=== PATIENT | male | born 1960 | race Caucasian/White ===

== ENCOUNTER 2017-10-22 19:00 | Emergency (ER) | payer SELFPAY ==
[2017-10-22 19:17] VITALS: BP 173/73; PULSE 73; RESP 20; TEMP 97.1; O2SAT 99
[2017-10-22] MEDS ORDERED: Lidocaine 5% Patch TD STA (19:42)
[2017-10-22] MEDS ORDERED: Lidocaine 5% Patch TD ONE (19:58)
--- NOTE | 2017-10-22 20:00 | C.PDOC ---
History Of Present Illness 56 y/o male presents to ED with c/o mid and low back pain for 3 months. Patient states he has taken over the counter pain medication with no improvement, states today he woke up "stiff" secondary to pain prompting visit to ED. Patient denies heavy lifting, fever, chills, abdominal pain, dysuria, bowel/ bladder incontinence or any other complaints at this time. Time Seen by Provider: 10/22/17 19:18 Chief Complaint (Nursing): Back Pain History Per: Patient History/Exam Limitations: no limitations Onset/Duration Of Symptoms: Days Current Symptoms Are (Timing): Still Present Quality Of Discomfort: "Pain" Past Medical History Reviewed: Historical Data, Nursing Documentation, Vital Signs Vital Signs: Last Vital Signs Temp 97.1 F L 10/22/17 19:14 Pulse 73 10/22/17 19:14 Resp 20 10/22/17 19:14 BP 173/73 H 10/22/17 19:14 Pulse Ox 99 10/22/17 20:36 - Medical History PMH: No Chronic Diseases Surgical History: No Surg Hx Family History: States: No Known Family Hx - Social History Hx Alcohol Use: No Hx Substance Use: No Review Of Systems Constitutional: Negative for: Fever, Chills Gastrointestinal: Negative for: Abdominal Pain Genitourinary: Negative for: Dysuria, Incontinence, Hematuria Musculoskeletal: Positive for: Back Pain Skin: Negative for: Rash Neurological: Negative for: Weakness, Numbness Physical Exam - Physical Exam Appears: Non-toxic, No Acute Distress Skin: Warm, Dry, No Rash Head: Atraumatic, Normacephalic Eye(s): bilateral: Normal Inspection Oral Mucosa: Moist Neck: Normal ROM, Supple Cardiovascular: Rhythm Regular Respiratory: Normal Breath Sounds, No Rales, No Rhonchi, No Wheezing Gastrointestinal/Abdominal: Soft, No Tenderness, No Guarding, No Rebound Back: No CVA Tenderness, Other (Paralumbar tenderness) Neurological/Psych: Oriented x3, Normal Speech, Normal Cognition, Normal Motor, Normal Sensation ED Course And Treatment O2 Sat by Pulse Oximetry: 99 (RA) Pulse Ox Interpretation: Normal Medical Decision Making Medical Decision Making: Impression: Back pain Plan: * LS spine xray * Toradol * Valium * Lidoderm Patch Progress: Xray viewed by me shows osteophytes and degenerative changes. On re-eval the patient reports pain is mildly improving. He is ambulatory without signs of discomfort. Recommend rest, heat, and analgesics. Patient instructed to follow up with ortho if pain persisted Disposition Counseled Patient/Family Regarding: Diagnosis, Need For Followup, Rx Given - Disposition Referrals: [facility] [Outside] [facility] [place] [Outside] Disposition: HOME/ ROUTINE Disposition Time: 20:34 Condition: STABLE Additional Instructions: Vaya a tena mdico o la clnica en 2-5 terry sin falta, para mas evaluacin. [place] los medicamentos kaity indicado. Volver a la jay de emergencia en cualquier momento si los sntomas persisten o empeoran. Prescriptions: Cyclobenzaprine [Cyclobenzaprine HCl] 10 mg PO TID #30 tab Ibuprofen [Motrin] 600 mg PO Q8 #30 tab Instructions: Low Back Pain (DC) Print Language: LITHUANIAN - POA Present On Arrival: None - Clinical Impression Clinical Impression: Low back pain - PA / [employer] REPRESENTATIVE / Resident Statement MD/DO has reviewed & agrees with the documentation as recorded. - Scribe Statement The provider has reviewed the documentation as recorded by the Scribe Cruzito Huber All medical record entries made by the Leif were at my direction and personally dictated by me. I have reviewed the chart and agree that the record accurately reflects my personal performance of the history, physical exam, medical decision making, and the department course for this patient. I have also personally directed, reviewed, and agree with the discharge instructions and disposition.
--- NOTE | 2017-10-23 10:42 | RAD ---
Date of service: 10/22/2017 PROCEDURE: Radiographs of the Lumbar Spine. HISTORY: Low back pain COMPARISON: No prior. FINDINGS: BONES: There is normal alignment of the lumbar vertebral bodies. There is normal lumbar lordosis. There is no acute fracture, spondylolysis or spondylolisthesis. Bone mineralization is normal. DISC SPACES: There is multilevel degenerative disease with large anterior osteophytes, reduced disc heights and multilevel facet arthropathy, worse at L5-S1. OTHER FINDINGS: There are no pathologic soft tissue calcifications. Both sacroiliac joints are normal. IMPRESSION: No acute fracture, spondylolysis or spondylolisthesis. Mild multilevel degenerative disc disease, worse at L5-S1.
== END 2017-10-22 20:42 | disposition home or self-care (01) ==
LOC: C.ER 19:00
DX: M54.5 Low back pain (principal)
CPT/HCPCS: 72100; 96372; 99283; J1885